=== PATIENT | female | born 1980 | race Two or more races ===

== ENCOUNTER → 2020-03-05 | Emergency (ER) | payer MEDICAID ==
[~2020-03-05] VITALS: Ht 165.1 cm; Wt 136.1 kg
[~2020-03-05] MED LIST: EPINEPHrine HCL 1 MG/10 ML SYRG IV ONE; SODIUM BICARBONATE 8.4% INJ 50ML SYRINGE IV ONE
== END | disposition expired ==
LOC: ER 04:40 → EDBD 04:40
DX: I46.9 Cardiac arrest, cause unspecified (principal)
CPT/HCPCS: 92950; 99285; J0171; 31500